=== PATIENT | female | born 1945 | race Caucasian/White ===

== ENCOUNTER 2017-07-04 05:59 | Emergency (ER) | payer MEDICARE, BC ==
--- NOTE | 2017-07-04 06:37 | ER Document Report ---
ED General - General Chief Complaint: Abdominal Pain Stated Complaint: ABDOMINAL PAIN,HIGH BLOOD PRESSURE PROBLEMS Time Seen by Provider: 07/04/17 06:28 Notes: The patient is a 71-year-old female, past medical history hypertension, GERD, chronic low back pain after a lumbar fusion 7 months ago, presents with epigastric pain radiating to her back and substernal chest region that started when she woke up to urinate earlier tonight. She has never had this before. Patient is also concerned that her blood pressure is elevated, although she did take her blood pressure medications yesterday morning. She is due for her Losartan 100 mg and HCTZ 25 mg this morning. She denies fevers, nausea, vomiting, shortness of breath, urinary symptoms, diarrhea, constipation, numbness, tingling, rash or ataxia. TRAVEL OUTSIDE OF THE [place] IN LAST 30 DAYS: No - Related Data Allergies/Adverse Reactions: tramadol Allergy (Verified 07/04/17 08:08) Past Medical History - General Information source: Patient - Social History Smoking Status: Unknown if Ever Smoked Family History: Reviewed & Not Pertinent - Past Medical History Cardiac Medical History: Reports: Hx Hypertension - Immunizations Hx Diphtheria, Pertussis, Tetanus Vaccination: Yes Review of Systems - Review of Systems Notes: REVIEW OF SYSTEMS: CONSTITUTIONAL: -fevers, -chills EENT: -eye pain, -difficulty swallowing, -nasal congestion CARDIOVASCULAR: +chest pain, -syncope. RESPIRATORY: -cough, -SOB GASTROINTESTINAL: +epigastric abdominal pain, -nausea, -vomiting, -diarrhea GENITOURINARY: -dysuria, -hematuria MUSCULOSKELETAL: +back pain, -neck pain SKIN: -rash or skin lesions. HEMATOLOGIC: -easy bruising or bleeding. LYMPHATIC: -swollen, enlarged glands. NEUROLOGICAL: -altered mental status or loss of consciousness, -headache, - neurologic symptoms PSYCHIATRIC: -anxiety, -depression. ALL OTHER SYSTEMS REVIEWED AND NEGATIVE. Physical Exam - Vital signs Vitals: Temp Pulse Resp BP Pulse Ox 97.6 F 72 18 171/96 H 98 07/04/17 06:05 07/04/17 06:05 07/04/17 06:05 07/04/17 06:05 07/04/17 06:05 - Notes Notes: PHYSICAL EXAMINATION: GENERAL: Well-appearing, well-nourished and in no acute distress. HEAD: Atraumatic, normocephalic. EYES: Pupils equal round and reactive to light, extraocular movements intact, sclera anicteric, conjunctiva are normal. ENT: nares patent, oropharynx clear without exudates. Moist mucous membranes. NECK: Normal range of motion, supple without lymphadenopathy LUNGS: Breath sounds clear to auscultation bilaterally and equal. No wheezes rales or rhonchi. HEART: Regular rate and rhythm without murmurs ABDOMEN: Soft, nontender, normoactive bowel sounds. No guarding, no rebound. No masses appreciated. EXTREMITIES: Normal range of motion, no pitting or edema. No cyanosis. NEUROLOGICAL: Cranial nerves grossly intact. Normal speech, normal gait. Normal sensory and motor exams. PSYCH: Normal mood, normal affect. SKIN: Warm, Dry, normal turgor, no rashes or lesions noted. Course - Re-evaluation Re-evalutation: Patient presents with sudden onset of epigastric pain radiating to her chest and back. CTA chest abdomen and pelvis was ordered due to concern about aortic dissection, but this did not show any evidence of aortic pathology or any other acute concerns. Patient's blood work and urine are unremarkable and EKG and troponin also do not show evidence of active ischemia. After GI cocktail, she feels much better. Instructed her to increase her Prilosec to twice a day and follow-up with her PMD for further evaluation and treatment. - Vital Signs Vital signs: Temp Pulse Resp BP Pulse Ox 97.6 F 72 7 L 178/93 H 97 07/04/17 06:05 07/04/17 06:05 07/04/17 07:11 07/04/17 06:27 07/04/17 07:11 - Laboratory Result Diagrams: 07/04/17 07:50 07/04/17 07:50 Laboratory results interpreted by me: 07/04/17 07/04/17 07:50 07:50 Hgb 11.9 L Hct 35.3 L Sodium 145.3 H Glucose 115 H - Diagnostic Test Radiology reviewed: Image reviewed, Reports reviewed Radiology results interpreted by me: CXR: NAD - EKG Interpretation by Me EKG shows normal: Sinus rhythm, [place], Intervals, QRS Complexes, ST-T Waves Rate: Normal When compared to previous EKG there are: Previous EKG unavailable Discharge - Discharge Clinical Impression: Abdominal pain Qualifiers: Abdominal location: epigastric Qualified Code(s): R10.13 - Epigastric pain Chest pain Qualifiers: Chest pain type: unspecified Qualified Code(s): R07.9 - Chest pain, unspecified Back pain Qualifiers: Back pain location: back pain in unspecified location Chronicity: acute Back pain laterality: unspecified Qualified Code(s): M54.9 - Dorsalgia, unspecified Condition: Stable Disposition: HOME, SELF-CARE Additional Instructions: Increase her Prilosec to twice a day and follow-up with your primary care physician. Her CAT scan does not show any evidence of aortic dissection or any other emergent concerns. CHEST PAIN OF UNCLEAR CAUSE: The exact cause of your chest pain isn't clear. Fortunately, there is no evidence of a dangerous medical condition. Further testing may be required to find the source of the pain. Most often, we find that this pain is coming from the chest wall -- the muscles or rib joints in the chest. But chest pain can come from the lung and lung lining, the esophagus, the heart valves or heart lining, and even the stomach or gallbladder. Rest. Eat lightly until the pain is gone. We may prescribe medicine for pain and inflammation. You should call the physician immediately if the pain radiates to the shoulder, jaw or arms; if you start to run a fever or develop a cough; or if you develop shortness of breath, or other new or alarming symptoms. NORMAL EXAM AND WORKUP: At this time, your examination and workup show no significant abnormality. No significant abnormal physical findings were noted. All laboratory, EKG, and imaging (x-ray, CT scans, ultrasound) studies that were ordered show no significant abnormality. Although your examination and all studies that were ordered showed no significant abnormal finding, there are no examinations and no studies that are 100% accurate. There is always the possibility that some abnormality could exist and not be detected with physical examination or within the limits and capabilities of laboratory and other studies. You should return or follow up as you were instructed on your visit today for further evaluation if your symptoms do not resolve. ACID REFLUX DISEASE (GERD): Gastro-Esophageal Reflux Disease (GERD) is caused by stomach acid refluxing back up into the esophagus. The valve at the end of the esophagus may be weak. This is common in persons with a hiatal hernia. GERD symptoms can include indigestion, chest pain, heartburn, or food "sticking." Certain foods, alcohol, and aspirin can make GERD worse. Treatment depends on the severity. Usually, antacids or acid-suppressing medicines are used. When the esophagus is acutely inflamed, the physician will often prescribe membrane-protective drugs such as Carafate. Some patients benefit from medication such as Reglan that tightens the valve at the top of the stomach. Avoid those foods that bring on your symptoms. For many people, these foods are coffee, chocolate, onions, garlic, and carbonated drinks. Don't use alcohol, aspirin, caffeine, or tobacco. Don't eat late at night -- within 4 hours of bedtime. Don't over-eat. If necessary, elevate the head of your bed about 4 inches so that stomach acid will not roll up into your esophagus. Call the doctor if you develop severe chest pain, inability to swallow fluids, fever, or worsening symptoms. PRILOSEC (ACID PUMP INHIBITOR): Prilosec (omeprazole) is an acid-pump inhibitor. It blocks the secretion of hydrogen ions in the acid-producing cells of the stomach. Prilosec keeps your stomach from making acid. Take all medication as prescribed, even after the pain is gone. Regular antacids may be added as needed if you have symptoms while taking this medicine. There are usually no side effects from this medication. Contact your doctor if there is fever, rash, yellow skin color, increasing abdominal pain, weakness, or unusual bruising. Return at once if you develop lightheadedness, black or bloody stool, or bloody vomitus. FOLLOW-UP CARE: If you have been referred to a physician for follow-up care, call the physician s office for an appointment as you were instructed or within the next two days. If you experience worsening or a significant change in your symptoms, notify the physician immediately or return to the Emergency Department at any time for re-evaluation. ABDOMINAL PAIN: There are many causes of abdominal pain. Pain can mean a serious problem requiring surgery (such as appendicitis). It can also be an innocent problem that goes away on its own (such as a viral infection). Often, time must pass to determine the cause of pain. The physician does not feel that hospitalization is necessary, at present. Things may change within the next 24 hours. Call the doctor or come back for re- examination if any problems occur, such as: (1) Pain that becomes more severe, steady, or becomes concentrated in one specific area. Also, pain that is more severe with movement or coughing. (2) Vomiting that persists or becomes more frequent. (3) Blood in the vomitus, urine, or bowel movements. Blood in the stool may have a tarry or black appearance. (4) Shaking chills or fever greater than 100 degrees F. (5) The abdomen becomes more distended or swollen. (6) Bowel movements cease. (7) Failure to improve as expected. NORMAL EXAM AND WORKUP: At this time, your examination and workup show no significant abnormality. No significant abnormal physical findings are noted. All laboratory, EKG, and imaging (x-ray, CT scans, ultrasound) studies that were ordered show no significant abnormality. Although your examination and all studies that were ordered showed no significant abnormal finding, there are no examinations and no studies that are 100% accurate. There is always the possibility that some abnormality could exist and not be detected with physical examination or within the limits and capabilities of laboratory and other studies. You should return or follow up as you were instructed on your visit today for further evaluation if your symptoms do not resolve. FOLLOW-UP CARE: If you have been referred to a physician for follow-up care, call the physician s office for an appointment as you were instructed or within the next two days. If you experience worsening or a significant change in your symptoms, notify the physician immediately or return to the Emergency Department at any time for re-evaluation. Forms: Elevated Blood Pressure Referrals: JAMES BALDWIN MD [Primary Care Provider] - Follow up as needed GLENN SETHI MD [ACTIVE STAFF] - Follow up as needed
--- NOTE | 2017-07-04 07:33 | RADIOLOGY REPORT (SQ) ---
EXAM DESCRIPTION: CHEST PA/LAT COMPLETED DATE/TIME: 07/04/2017 7:13 am REASON FOR STUDY: chest pain COMPARISON: 08/02/2016. EXAM PARAMETERS: NUMBER OF VIEWS: two views TECHNIQUE: Digital Frontal and Lateral radiographic views of the chest acquired. RADIATION DOSE: NA LIMITATIONS: none FINDINGS: LUNGS AND PLEURA: Prominent interstitium. MEDIASTINUM AND HILAR STRUCTURES: No masses or contour abnormalities. HEART AND VASCULAR STRUCTURES: Heart normal size. No evidence for failure. Atherosclerosis. BONES: No acute findings. HARDWARE: Cervicothoracic hardware fusion. Lumbar spine hardware partially imaged. OTHER: No other significant finding. IMPRESSION: No acute cardiopulmonary findings. TECHNICAL DOCUMENTATION: JOB ID: [id number] [employer]- All Rights Reserved
[2017-07-04] MEDS ORDERED: HYDROCHLOROTHIAZIDE 25 MG TABLET PO ONE (07:38)
[2017-07-04] MEDS ORDERED: LOSARTAN POTASSIUM 50 MG TABLET PO ONE (07:38)
[2017-07-04 07:59] LABS: ABSOLUTE BASOPHILS # (AUTO) 0.1 10^3/uL (0.0-0.2); ABSOLUTE EOSINOPHILS # (AUTO) 0.1 10^3/uL (0.0-0.6); ABSOLUTE LYMPHOCYTES (AUTO) 1.2 10^3/uL (0.5-4.7); ABSOLUTE MONOCYTES (AUTO) 0.7 10^3/uL (0.1-1.4); ABSOLUTE NEUT (AUTO) 5.5 10^3/uL (1.7-8.2); BASOPHILS % (AUTO) 0.8 % (0-2); EOSINOPHILS % (AUTO) 0.7 % (0-6); HEMATOCRIT 35.3 % (36.0-47.0); HEMOGLOBIN 11.9 g/dL (12.0-15.5); HGB HCT DIFFERENCE 0.4; LYMPHOCYTES % (AUTO) 16.4 % (13-45); MEAN CORPUSCULAR HEMOGLOBIN 31.7 pg (27.0-33.4); MEAN CORPUSCULAR HGB CONC 33.9 g/dL (32.0-36.0); MEAN CORPUSCULAR VOLUME 94 fl (80-97); MONOCYTES % (AUTO) 9.8 % (3-13); RED BLOOD COUNT 3.77 10^6/uL (3.72-5.28); SEGMENTED NEUTROPHILS % (AUTO) 72.3 % (42-78); WHITE BLOOD COUNT 7.6 10^3/uL (4.0-10.5)
[2017-07-04 08:04] LABS: APPEARANCE,URINE CLEAR; BILIRUBIN,URINE NEGATIVE (NEGATIVE); GLUCOSE, URINE NEGATIVE (NEGATIVE); KETONES,URINE NEGATIVE (NEGATIVE); LEUKOCYTE ESTERASE,URINE NEGATIVE (NEGATIVE); NITRITE,URINE NEGATIVE (NEGATIVE); PROTEIN,URINE NEGATIVE (NEGATIVE); URINE SPECIFIC GRAVITY 1.013; UROBILINOGEN,URINE NEGATIVE mg/dL (<2.0)
[2017-07-04 08:22] LABS: ALANINE AMINOTRANSFERASE 38 U/L (9-52); ALBUMIN 4.2 g/dL (3.5-5.0); ALKALINE PHOSPHATASE 62 U/L (38-126); ANION GAP 11 (5-19); ASPARTATE AMINO TRANSFERASE 25 U/L (14-36); BILIRUBIN,DIRECT 0.3 mg/dL (0.0-0.4); BILIRUBIN,TOTAL 0.5 mg/dL (0.2-1.3); BLOOD UREA NITROGEN 13 mg/dL (7-20); CALCIUM 9.4 mg/dL (8.4-10.2); CARBON DIOXIDE 28 mmol/L (22-30); CHLORIDE 106 mmol/L (98-107); CREATININE RESULT 0.82 mg/dL (0.52-1.25); GLUCOSE 115 mg/dL (75-110); LIPASE 118.5 U/L (23-300); POTASSIUM 4.1 mmol/L (3.6-5.0); SODIUM 145.3 mmol/L (137-145); TOTAL PROTEIN 6.6 g/dL (6.3-8.2)
--- NOTE | 2017-07-04 08:47 | RADIOLOGY REPORT (SQ) ---
EXAM DESCRIPTION: CTA CHEST COMPLETED DATE/TIME: 07/04/2017 8:30 am REASON FOR STUDY: chest/abdomen/back tearing COMPARISON: CT chest 05/28/2009, 12/31/2009, 02/21/2010, 09/01/2010 TECHNIQUE: CT scan of the chest performed using helical scanning technique with dynamic intravenous contrast injection. Images reviewed with lung, soft tissue and bone windows. Reconstructed coronal and sagittal MPR images reviewed. Additional 3 dimensional post-processing performed to develop Maximal Intensity Projection images (IN P). All images stored on PACS. All CT scanners at this facility use dose modulation, iterative reconstruction, and/or weight based d osing when appropriate to reduce radiation dose to as low as reasonably achievable (ALARA). [facility]: Dose Right [facility]: CareDose [facility]: Dose Right [facility]: Teradose 4D [facility]: [employer] CONTRAST TYPE AND DOSE: contrast/concentration: Isovue 370.00 mg/ml; Total Contrast Delivered: 99.0 ml; Total Saline Delivered: 90.0 ml Contrast bolus adequate for pulmonary arteries and aorta. RENAL FUNCTION: Deferred by ER doctor RADIATION DOSE: 14.5 mGy . LIMITATIONS: None. FINDINGS: LUNGS AND PLEURA: No masses, infiltrates, pneumothorax. No pleural effusions, calcificati ons. AORTA AND GREAT VESSELS: No aneurysm. No thoracic aortic dissection HEART: No pericardial effusion. No significant coronary artery calcifications. PULMONARY ARTERIES: No emboli visualized in the main pulmonary arteries or the segmental branches. HILAR AND MEDIASTINAL STRUCTURES: No identified masses or abnormal nodes. HARDWARE: None in the chest. UPPER ABDOMEN: No significant findings. Limited exam. THYROID AND OTHER SOFT TISSUES: No masses. No adenopathy. BONES: No acute or significant finding. 3D MIPS: Confirm above findings. OTHER: No other significant finding. IMPRESSION: NORMAL CTA OF THE CHEST. NO PULMONARY EMBOLI. COMMENT: Quality ID # [id number]: Final reports with documentation of one or more dose reduction techniques (e.g., Automated exposure control, adjustment of the mA and/or kV according to patient size, use of iterative reconstruction technique) TECHNICAL DOCUMENTATION: JOB ID: [id number]- All Rights Reserved
--- NOTE | 2017-07-04 08:53 | RADIOLOGY REPORT (SQ) ---
EXAM DESCRIPTION: CTA ABDOMEN/PELVIS W WO COMPLETED DATE/TIME: 07/04/2017 8:30 am REASON FOR STUDY: chest/abdomen/back tearing COMPARISON: Multiple previous CT chest exams TECHNIQUE: CT scan of the abdomen and pelvis performed with intravenous contrast using helical scann ing technique with dynamic intravenous contrast injection. No oral contrast Images reviewed with lung, soft tissue, and bone windows. Reconstructed coronal and sagittal MPR imag es reviewed. Delayed images for evaluation of the urinary system also acquired. All images stored on PACS. All CT scanners at this facility use dose modulation, iterative reconstruction, and/or weight based d osing when appropriate to reduce radiation dose to as low as reasonably achievable (ALARA). [facility]: Dose Right [facility]: CareDose [facility]: Dose Right [facility]: Teradose 4D [facility]: [employer] CONTRAST TYPE AND DOSE: 99 mL Isovue 370- low osmolar. RENAL FUNCTION: Deferred by ER doctor RADIATION DOSE: CT Rad equipment meets quality standard of care and radiation dose reduction techniq ues were employed. CTDIvol: 12.0 - 17.9 mGy. DLP: 1718 mGy-cm.. LIMITATIONS: None. FINDINGS: LOWER CHEST: No significant findings. No nodules or infiltrates. LIVER: Normal size. No masses. No dilated ducts. SPLEEN: Normal size. No focal lesions. PANCREAS: No masses. No significant calcifications. No adjacent inflammation or peripancreatic fluid collections. Pancreatic duct not dilated. GALLBLADDER: No identified stones by CT criteria. No inflammatory changes to suggest cholecystitis. ADRENAL GLANDS: No significant masses or asymmetry. RIGHT KIDNEY AND URETER: No solid masses. 2.5 cm right midpole renal cortical cyst. No significant calcification. No hydronephrosis or hydroureter. LEFT KIDNEY AND URETER: No solid masses. No significant calcification. No hydronephrosis or hydrouret er. AORTA AND VESSELS: No aneurysm. No dissection. Renal arteries, SMA, celiac without stenosis. RETROPERITONEUM: No retroperitoneal adenopathy, hemorrhage or masses. BOWEL AND PERITONEAL CAVITY: No obstruction. No visualized masses. No free fluid. No inflammatory ch anges or thickening of bowel wall. Scattered sigmoid and descending colonic diverticuli without CT s igns of acute diverticulitis. APPENDIX: Not identified PELVIS: No significant masses. Normal bladder. No free fluid. Post hysterectomy ABDOMINAL WALL: No masses. No hernias. BONES: No significant or acute findings. Lumbar fusion with hardware OTHER: No other significant finding. IMPRESSION: NO SIGNIFICANT OR ACUTE FINDINGS IN THE ABDOMEN OR PELVIS. TECHNICAL DOCUMENTATION: JOB ID: [id number] Quality ID # [id number]: Final reports with documentation of one or more dose reduction techniques (e.g., Au tomated exposure control, adjustment of the mA and/or kV according to patient size, use of iterative reconstruction technique) 2010 [employer]- All Rights Reserved
[2017-07-04] MEDS ORDERED: METOCLOPRAMIDE HCL ORAL SOLN 10 MG/10 ML UDCUP PO ONE (09:03)
[2017-07-04] MEDS ORDERED: MAG HYDROX/AL HYDROX/SIMETH SUSP 30 ML UDCUP PO ONE (09:03)
[2017-07-04] MEDS ORDERED: LIDOCAINE 2% VISCOUS SOLN 20 ML UDCUP PO ONE (09:03)
[2017-07-04 09:43] VITALS: BP 144/68
--- NOTE | 2017-07-05 06:07 | EKG REPORT ---
SEVERITY:- NORMAL ECG - SINUS RHYTHM : Confirmed by: Kassidy Mello MD 05-Jul-2017 06:06:59
== END 2017-07-04 09:44 | disposition home or self-care (01) ==
LOC: ER 05:59
DX: R10.13 Epigastric pain (principal); R07.9 Chest pain, unspecified; M54.9 Dorsalgia, unspecified; I10 Essential (primary) hypertension
CPT/HCPCS: 93005; 99285; 36415; 83690; 85025; 80053; 81001; 84484; 71020; 71275; 74174; 93010; A9270 ×2; J3490

== ENCOUNTER 2018-11-06 09:31 | Emergency (ER) | payer MEDICARE, BC ==
--- NOTE | 2018-11-06 09:55 | ER Document Report ---
ED Medical Screen (RME) - General Chief Complaint: Abdominal Pain Stated Complaint: ABDOMINAL PAIN Time Seen by Provider: 11/06/18 09:53 Mode of Arrival: Ambulatory Information source: Patient TRAVEL OUTSIDE OF THE [place] IN LAST 30 DAYS: No - HPI Patient complains to provider of: abd pain Onset: Other - pt with several week h/o intermittent abd pain (has been on mobic) which has gogtten worse in the pas few days - Related Data Allergies/Adverse Reactions: meloxicam Allergy (Verified 11/06/18 09:35) metaxalone Allergy (Verified 11/06/18 09:35) pregabalin [From Lyrica] Allergy (Verified 11/06/18 09:35) tramadol Allergy (Verified 07/04/17 08:08) Past Medical History - Past Medical History Cardiac Medical History: Reports: Hx Hypercholesterolemia, Hx Hypertension Renal/ Medical History: Denies: Hx Peritoneal Dialysis GI Medical History: Reports: Hx Gastroesophageal Reflux Disease Past Surgical History: Reports: Hx Abdominal Surgery - hernia, Hx Hysterectomy, Hx Orthopedic Surgery - back, left shoulder - Immunizations Hx Diphtheria, Pertussis, Tetanus Vaccination: Yes Physical Exam - Vital signs Vitals: Temp Pulse Resp BP Pulse Ox 98.2 F 87 16 119/67 97 11/06/18 09:45 11/06/18 09:45 11/06/18 09:45 11/06/18 09:45 11/06/18 09:45 Course - Vital Signs Vital signs: Temp Pulse Resp BP Pulse Ox 98.2 F 87 16 119/67 97 11/06/18 09:45 11/06/18 09:45 11/06/18 09:45 11/06/18 09:45 11/06/18 09:45
[2018-11-06 10:17] LABS: ABSOLUTE EOSINOPHILS # (AUTO) 0.1 10^3/uL (0.0-0.6); ABSOLUTE LYMPHOCYTES (AUTO) 0.9 10^3/uL (0.5-4.7); ABSOLUTE MONOCYTES (AUTO) 0.7 10^3/uL (0.1-1.4); ABSOLUTE NEUT (AUTO) 7.9 10^3/uL (1.7-8.2); BASOPHILS % (AUTO) 0.4 % (0-2); EOSINOPHILS % (AUTO) 0.7 % (0-6); HEMATOCRIT 36.9 % (36.0-47.0); HEMOGLOBIN 12.6 g/dL (12.0-15.5); LYMPHOCYTES % (AUTO) 9.4 % (13-45); MEAN CORPUSCULAR HEMOGLOBIN 30.9 pg (27.0-33.4); MEAN CORPUSCULAR HGB CONC 34.2 g/dL (32.0-36.0); MEAN CORPUSCULAR VOLUME 90 fl (80-97); MONOCYTES % (AUTO) 7.3 % (3-13); PLATELET COUNT 278 10^3/uL (150-450); RED BLOOD COUNT 4.09 10^6/uL (3.72-5.28); RED CELL DISTRIBUTION WIDTH 13.5 % (11.5-14.0); SEGMENTED NEUTROPHILS % (AUTO) 82.2 % (42-78); TOTAL CELLS COUNTED % (AUTO) 100 %; WHITE BLOOD COUNT 9.6 10^3/uL (4.0-10.5)
[2018-11-06 10:36] LABS: ALANINE AMINOTRANSFERASE 16 U/L (9-52); ALBUMIN 4.3 g/dL (3.5-5.0); ALKALINE PHOSPHATASE 64 U/L (38-126); ANION GAP 10 (5-19); ASPARTATE AMINO TRANSFERASE 37 U/L (14-36); BILIRUBIN,DIRECT 0.3 mg/dL (0.0-0.4); BILIRUBIN,TOTAL 0.6 mg/dL (0.2-1.3); BLOOD UREA NITROGEN 14 mg/dL (7-20); CALCIUM 9.7 mg/dL (8.4-10.2); CARBON DIOXIDE 28 mmol/L (22-30); CHLORIDE 99 mmol/L (98-107); GLUCOSE 230 mg/dL (75-110); POTASSIUM 3.5 mmol/L (3.6-5.0); SODIUM 136.6 mmol/L (137-145); TOTAL PROTEIN 7.7 g/dL (6.3-8.2)
[2018-11-06 10:37] LABS: LIPASE 66.5 U/L (23-300)
[2018-11-06 11:25] LABS: APPEARANCE,URINE CLEAR; BILIRUBIN,URINE NEGATIVE (NEGATIVE); COLOR,URINE YELLOW; GLUCOSE, URINE NEGATIVE (NEGATIVE); KETONES,URINE NEGATIVE (NEGATIVE); LEUKOCYTE ESTERASE,URINE NEGATIVE (NEGATIVE); NITRITE,URINE NEGATIVE (NEGATIVE); PROTEIN,URINE NEGATIVE (NEGATIVE); URINE SPECIFIC GRAVITY 1.008; UROBILINOGEN,URINE NEGATIVE mg/dL (<2.0)
--- NOTE | 2018-11-06 15:54 | RADIOLOGY REPORT (SQ) ---
EXAM DESCRIPTION: CT ABD/PELVIS WITH IV ORAL COMPLETED DATE/TIME: 11/06/2018 2:51 pm REASON FOR STUDY: Lower abdominal pain COMPARISON: CT abdomen pelvis 07/04/2017 TECHNIQUE: CT scan of the abdomen and pelvis performed using helical scanning technique with dynamic intravenous contrast injection. No oral contrast. Images reviewed with lung, soft tissue, and bone windows. Reconstructed coronal and sagittal MPR images reviewed. Delayed images for evaluation of the urinary system also acquired. All images stored on PACS. All CT scanners at this facility use dose modulation, iterative reconstruction, and/or weight based d osing when appropriate to reduce radiation dose to as low as reasonably achievable (ALARA). [facility]: Dose Right [facility]: CareDose [facility]: Dose Right [facility]: Teradose 4D [facility]: [employer] CONTRAST TYPE AND DOSE: contrast/concentration: Isovue 350.00 mg/ml; Total Contrast Delivered: 94.0 ml; Total Saline Delivered: 71.0 ml RENAL FUNCTION: Creatinine 0.85 RADIATION DOSE: CT Rad equipment meets quality standard of care and radiation dose reduction techniq ues were employed. CTDIvol: 12.2 - 16.2 mGy. DLP: 1586 mGy-cm.. LIMITATIONS: None. FINDINGS: Along the distal sigmoid colon, a 10 cm long segment of colon wall thickening and luminal narrowing is present. There is bandlike inflammatory change along the leftward lateral aspect of the colon without well-circumscribed abscess or free air. Findings likely represent diverticulitis, bes t shown on axial series 3, images 75-82. There is a very small amount of air in the vagina. Patient is post hysterectomy. Correlate clinical ly for colovaginal fistula. Patient drank oral contrast. Remainder of the gastrointestinal tract is otherwise unremarkable. No CT evidence of bowel obstruction. No free intraperitoneal air or free fluid. LOWER CHEST: No significant findings. No nodules or infiltrates. LIVER: Normal size. No masses. No dilated ducts. Subcentimeter cyst right lobe liver subdiaphragmat ic surface SPLEEN: Normal size. No focal lesions. PANCREAS: No masses. No significant calcifications. No adjacent inflammation or peripancreatic fluid collections. Pancreatic duct not dilated. GALLBLADDER: No identified stones by CT criteria. No inflammatory changes to suggest cholecystitis. ADRENAL GLANDS: No significant masses or asymmetry. RIGHT KIDNEY AND URETER: No solid masses. 3 cm right upper pole renal cortical cyst No significant c alcifications. No hydronephrosis or hydroureter. LEFT KIDNEY AND URETER: No solid masses. No significant calcifications. No hydronephrosis or hydr oureter. AORTA AND VESSELS: No aneurysm. No dissection. Renal arteries, SMA, celiac without stenosis. RETROPERITONEUM: No retroperitoneal adenopathy, hemorrhage or masses. BOWEL AND PERITONEAL CAVITY: As above APPENDIX: Surgically absent PELVIS: As above. Post hysterectomy. Sigmoid colon diverticulitis. Adjacent air in the vagina with out a definite discrete fistula seen by today's study. Correlate clinically for colovaginal fistula. Urinary bladder unremarkable. No pelvic adenopathy ABDOMINAL WALL: No masses. No hernias. BONES: Lumbar fusion with hardware from L3-4 through L4-5. OTHER: No other significant finding. IMPRESSION: Sigmoid colon diverticulitis with adjacent inflammation in the left pelvic sidewall fat. No discrete abscess. Adjacent air in the vagina without a discrete fistula seen by today's study. Correlate clinically for colovaginal fistula TECHNICAL DOCUMENTATION: JOB ID: [id number] Quality ID # [id number]: Final reports with documentation of one or more dose reduction techniques (e.g., Au tomated exposure control, adjustment of the mA and/or kV according to patient size, use of iterative reconstruction technique) 2010 [employer]- All Rights Reserved Reading location - IP/workstation name: [email or web address]
[2018-11-06] MEDS ORDERED: LEVOFLOXACIN 750 MG/D5W RTU 750 MG/150 ML RTUPB IV ONE (16:01)
[2018-11-06] MEDS ORDERED: METRONIDAZOLE 500 MG/NS RTU 500 MG/100 ML RTUPB IV ONE (16:02)
--- NOTE | 2018-11-06 18:34 | ER Document Report ---
Entered by FATOU PITTS SCRIBE 11/06/18 1049 Acting as scribe for:ZULAY GARRIDO MD ED General - General Chief Complaint: Abdominal Pain Stated Complaint: ABDOMINAL PAIN Time Seen by Provider: 11/06/18 09:53 Primary Care Provider: [facility] [Provider Group] - Follow up in 1 week JAMES SAUNDERS MD [Primary Care Provider] - Follow up in 3-5 days Mode of Arrival: Ambulatory Notes: Patient is a 73 year old female presenting to the emergency department complaining of abdominal pain onset several weeks ago. She also complains of nausea, vomiting, chills and fatigue. She reports her last vomiting episode was 1 week ago. She states her abdominal and nausea has worsened over the last few days. She further complains of an inability to move bowels further stating she usually has a bowel movement 2x daily, however she has only had 1 small bowel mo vement these last 2 days. She denies any recent injuries or fevers. She states she started meloxicam on 09/23/18 and was instructed to discontinue use on 10/29/18. Patient states she is on pain management for chronic back and neck pain. Patient's PCP is Dr. Saunders. TRAVEL OUTSIDE OF THE [place] IN LAST 30 DAYS: No - Related Data Allergies/Adverse Reactions: meloxicam Allergy (Verified 11/06/18 09:35) metaxalone Allergy (Verified 11/06/18 09:35) pregabalin [From Lyrica] Allergy (Verified 11/06/18 09:35) tramadol Allergy (Verified 07/04/17 08:08) Past Medical History - General Information source: Patient - Social History Smoking Status: Former Smoker Cigarette use (# per day): No Chew tobacco use (# tins/day): No Smoking Education Provided: No Frequency of alcohol use: None Family History: Reviewed & Not Pertinent Patient has suicidal ideation: No Patient has homicidal ideation: No - Past Medical History Cardiac Medical History: Reports: Hx Hypercholesterolemia, Hx Hypertension GI Medical History: Reports: Hx Gastroesophageal Reflux Disease Past Surgical History: Reports: Hx Abdominal Surgery - hernia, Hx Hysterectomy, Hx Orthopedic Surgery - back, left shoulder, Other - L3-4 fusion, L4-5 fusion '17. Discectomy '15 - Immunizations Hx Diphtheria, Pertussis, Tetanus Vaccination: Yes Review of Systems - Review of Systems Constitutional: See HPI, Chills EENT: No symptoms reported Cardiovascular: No symptoms reported Respiratory: No symptoms reported Gastrointestinal: See HPI Genitourinary: No symptoms reported Female Genitourinary: No symptoms reported Musculoskeletal: No symptoms reported Skin: No symptoms reported Hematologic/Lymphatic: No symptoms reported Neurological/Psychological: No symptoms reported -: Yes All other systems reviewed and negative Physical Exam - Vital signs Vitals: Temp Pulse Resp BP Pulse Ox 98.2 F 87 16 119/67 97 11/06/18 09:45 11/06/18 09:45 11/06/18 09:45 11/06/18 09:45 11/06/18 09:45 - Notes Notes: GENERAL: Alert, interacts well. No acute distress. HEAD: Normocephalic, atraumatic. EYES: Pupils equal, round, and reactive to light. Extraocular movements intact. ENT: Oral mucosa moist, tongue midline. NECK: Full range of motion. Supple. Trachea midline. LUNGS: Clear to auscultation bilaterally, no wheezes, rales, or rhonchi. No respiratory distress. HEART: Regular rate and rhythm. No murmurs, gallops, or rubs. ABDOMEN: Soft, bilateral lower abdominal and pelvic tenderness to palpation. Non-distended. Bowel sounds present in all 4 quadrants. No guarding, rigidity, or rebound. EXTREMITIES: Moves all 4 extremities spontaneously. NEUROLOGICAL: Alert and oriented x3. Normal speech. PSYCH: Normal affect, normal mood. SKIN: Warm, dry, normal turgor. No rashes or lesions noted. Course - Vital Signs Vital signs: Temp Pulse Resp BP Pulse Ox 97.8 F 76 16 132/74 H 98 11/06/18 12:38 11/06/18 14:30 11/06/18 14:30 11/06/18 14:30 11/06/18 14:30 - Laboratory Result Diagrams: 11/06/18 09:55 11/06/18 09:55 Laboratory results interpreted by me: 11/06/18 11/06/18 09:55 09:55 Seg Neutrophils % 82.2 H Lymphocytes % 9.4 L Sodium 136.6 L Potassium 3.5 L Glucose 230 H AST 37 H - Diagnostic Test Radiology reviewed: Image reviewed, Reports reviewed - Sigmoid colon diverticulitis with adjacent inflammation in the left pelvic sidewall fat. No discrete abscess. Adjacent air in the vagina without discrete fistula seen by today's study. - Consults Dr. Cross Time consulted: 16:53 Consulted provider: follow-up in office - Follow-up in the office next , Wednesday or the following Wednesday. Discharge - Discharge Clinical Impression: Sigmoid diverticulitis Condition: Stable Disposition: HOME, SELF-CARE Additional Instructions: Diverticulitis: You have been diagnosed as having diverticulitis. This is an inflammation of a small pouch attached to the colon, called a diverticulum. Many of these small pouches can form on the colon as you get older. They are often caused by constipation. When inflamed or infected, symptoms arise -- usually abdominal pain, constipation or diarrhea, fever, and blood in the stool. Severe diverticulitis may require hospitalization. More mild cases are usually treated with antibiotics and clear liquid diet. As you improve, a diet low in residue (one which forms little stool) is prescribed. When you are better, you should eat a high-fiber diet. Stool softeners (like Metamucil) are usually recommended. Call the doctor or go to the hospital if there is increasing pain, vomiting, high fever, large amounts of blood passed, or if bowel movements cease. Take the antibiotic medication as prescribed. Take Tylenol for pain if needed. Drink plenty of fluids. Follow-up with [facility] sometime in the next 5-7 days. RETURN TO THE EMERGENCY ROOM IF ANY NEW OR WORSENING SYMPTOMS. Prescriptions: Ciprofloxacin HCl [Cipro 750 mg Tablet] 750 mg PO BID #20 tablet Metronidazole [Flagyl 500 mg Tablet] 500 mg PO QID #40 tablet Referrals: [facility] [Provider Group] - Follow up in 1 week JAMES SAUNDERS MD [Primary Care Provider] - Follow up in 3-5 days Scribe Attestation: 11/06/18 13:07 I personally performed the services described in the documentation, reviewed and edited the documentation which was dictated to the scribe in my presence, and it accurately records my words and actions. I personally performed the services described in the documentation, reviewed and edited the documentation which was dictated to the scribe in my presence, and it accurately records my words and actions.
[2018-11-06 19:06] VITALS: BP 131/85
== END 2018-11-06 19:09 | disposition home or self-care (01) ==
LOC: ER 09:31
DX: K57.32 Diverticulitis of large intestine without perforation or abscess without bleeding (principal); R68.83 Chills (without fever); R53.83 Other fatigue; R11.0 Nausea; R19.4 Change in bowel habit; I10 Essential (primary) hypertension; M54.2 Cervicalgia; M54.9 Dorsalgia, unspecified; G89.29 Other chronic pain; Z79.899 Other long term (current) drug therapy; Z88.5 Allergy status to narcotic agent; Z88.8 Allergy status to other drugs, medicaments and biological substances; Z88.6 Allergy status to analgesic agent; Z87.891 Personal history of nicotine dependence
CPT/HCPCS: 99284; 96365; 96367; 36415; 83690; 85025; 80053; 81001; 74177; J1956

== ENCOUNTER 2018-11-24 06:44 | Day surgery (SDC) | payer MEDICARE, BC ==
[2018-11-24] MEDS ORDERED: ONDANSETRON HCL INJ/PF 4 MG/2 ML SDV ONE (07:13)
[2018-11-24] MEDS ORDERED: DIPHENHYDRAMINE HCL 50 MG/ML VIAL ONE (07:13)
[2018-11-24] MEDS ORDERED: FLUMAZENIL INJ 0.5 MG/5 ML VIAL ONE (07:14)
[2018-11-24] MEDS ORDERED: EPINEPHRINE INJ 1 MG/10 ML DISP.SYRIN ONE (07:14)
[2018-11-24] MEDS ORDERED: GLUCAGON,HUMAN RECOMB 1 MG INJ ONE (07:14)
[2018-11-24] MEDS ORDERED: NALOXONE HCL INJ/PF 0.4 MG/1 ML SDV ONE (07:14)
[2018-11-24] MEDS: MIDAZOLAM 2 MG/2 ML INJ ONE ×2 (07:48→07:52)
[2018-11-24] MEDS: FENTANYL CITRATE INJ/PF 100 MCG/2 ML AMPUL ONE ×2 (07:50→08:08)
--- NOTE | 2018-11-24 08:37 | Operative Report ---
Operative Report DATE OF SURGERY: 11/24/18 PREOPERATIVE DIAGNOSIS: Sigmoid diverticulitis with narrowing sigmoid colon; ru le out colovesicular fistula POSTOPERATIVE DIAGNOSIS: Same; rectal polyp OPERATION: Incomplete colonoscopy to 30 cm; rectal polypectomy with cold forceps device SURGEON: JAUN DENNIS ANESTHESIA: LMAC TISSUE REMOVED OR ALTERED: Rectal polyp COMPLICATIONS: None ESTIMATED BLOOD LOSS: Scant INTRAOPERATIVE FINDINGS: See below PROCEDURE: Obtaining informed consent the patient was taken from the preoperative holding area to the main endoscopy suite where monitoring devices were attached to the patient. Plan and surgical timeout were conducted The patient was placed in the left lateral decubitus position with knees to chest. A perianal examination was performed. There was no visible or palpable anorectal pathology. Sphincter tone was felt to be normal. The flexible pediatric, approximately 30 cm from the anal verge. Unfortunately we were unable to advance the scope the office point due to patient discomfort despite 6 mg of Versed and 100 mcg of fentanyl. We did change position of the patient supine, as well as enhanced regulation of the anterior abdominal wall, but were unable to advance the scope. There was no identified pathology at this point. Ability to advance the scope may have been due to structure, narrowing or extraluminal depression of the colon due to adhesions. Therefore the procedure was aborted. The scope was withdrawn through the rectosigmoid area. At approximately 12 cm in the anal verge was a 2-3 mm sessile polyp, photographed, removed with a cold forceps device. Specimen was submitted as rectal polyp. The clinical impression was a hyperplastic polyp. Bleeding was minimal The scope was withdrawn to the patient's anus. She tolerated the procedure well. Plan: 1. We will make arrangements to take the patient down to the operating room to perform a second attempt at complete colonoscopy under LMAC anesthesia pending 2. This was explained to the patient and her .
[2018-11-24] MEDS ORDERED: PROPOFOL INJ 200 MG/20 ML VIAL IV ONE (10:05)
--- NOTE | 2018-11-24 11:18 | Operative Report ---
Nonrecallable Operative Report DATE OF SURGERY: 11/24/18 PREOPERATIVE DIAGNOSIS: Sigmoid diverticulosis disease, history of diverticulitis;. Rectal polyp POSTOPERATIVE DIAGNOSIS: Additional rectal polyps; no evidence of sigmoid stricture or colovaginal fistula OPERATION: 1. Total colonoscopy to cecum. 2. Upper rectal polypectomy x2. SURGEON: JAUN CALABRESE ANESTHESIA: LMAC TISSUE REMOVED OR ALTERED: Rectal polyps x2 COMPLICATIONS: None ESTIMATED BLOOD LOSS: Scant INTRAOPERATIVE FINDINGS: See below PROCEDURE: Obtaining informed consent the patient was taken from the preoperative holding area to the main endoscopy suite where monitoring devices were attached to the patient. Plan and surgical timeout were conducted The patient had previously undergone incomplete colonoscopy by Dr. Calabrese 2 hours prior to the endoscopy suite. The procedure could not be performed because of inability to advance the scope to the rectosigmoid colon. She is now brought to the operating room for the delivery of LMAC anesthesia Appropriate level of anesthesia was induced. The flexible pediatric colonoscope was now advanced to the anal rectal canal, through the rectosigmoid area. There was tortuosity of this area but no marti stricture. With extracorporeal manipulation, we were able to advance the colonoscope up through this region, through the descending colon transverse colon descending colon into the cecum. This was an excellent study in a well-prepped bowel. She tolerated it well. Transillumination of the anterior abdominal wall, and visualization of the appendiceal orifice confirmed no intubation. The scope was withdrawn to light the colon checked the mucosa carefully. There was no evidence of tumor stricture bleeding. Sigmoid colon there were scattered diverticulosis disease and generalized narrowing and tortuous stenosis of the colon, but no marti stricture. Nor could we appreciate an opening consistent with a colo vaginal fistula. In the upper rectum approximately 19 cm from the anal verge were 2 small sessile polyps which were removed with a cold forceps device uneventfully. Specimens were retrieved and labeled as rectal polyps. Bleeding was minimal Patient tolerated procedure well and was recovered in the recovery room and then transferred back to the fifth floor endoscopy suite. Plan: 1. We will see patient back in [facility] for follow-up appointment 2. We will set patient up for a Gastrografin enema on an outpatient basis.
[2018-11-24 14:05] VITALS: BP 127/76
--- NOTE | 2018-11-30 09:22 | Discharge Summary ---
Discharge Summary (SDC) - Discharge Final Diagnosis: Sigmoid diverticulosis; rectal polyps Date of Surgery: 11/24/18 Discharge Date: 11/24/18 Condition: Good Forms: Discharge POC-Adult, EU Anesthesia D/C Instructions Referrals: JAUN DENNIS MD [ACTIVE STAFF] - 12/13/18 1:00 pm Discharge Activity: Activity As Tolerated, Balance Activity w/Rest, No Driving Home Care Assistance: None Needed Report the Following to Your Physician Immediately: Shortness of Breath, Nausea, Vomiting, Increase in Pain, Fever over 101 Degrees, Unusual Bleeding, IV Site Infection Signs
== END 2018-11-24 12:30 | disposition home or self-care (01) ==
LOC: END 06:44
PROVIDERS: ATTEND Surgery
DX: K57.92 Diverticulitis of intestine, part unspecified, without perforation or abscess without bleeding (principal); R10.9 Unspecified abdominal pain; Z79.899 Other long term (current) drug therapy; E07.9 Disorder of thyroid, unspecified; I10 Essential (primary) hypertension; E78.00 Pure hypercholesterolemia, unspecified; Z87.891 Personal history of nicotine dependence; Z79.01 Long term (current) use of anticoagulants; Z79.82 Long term (current) use of aspirin; K63.5 Polyp of colon; I25.10 Atherosclerotic heart disease of native coronary artery without angina pectoris
CPT/HCPCS: 45380; J2250; J3010; J2704; 811; J0171; J1200; J1610; J2310; J2405; J3490

== ENCOUNTER 2019-07-22 09:46 | Emergency (ER) | payer MEDICARE, BC ==
[2019-07-22] MEDS ORDERED: IPRATROPIUM/ALBUTEROL 0.5-2.5 MG/3 ML AMPUL NEB ONE (10:11)
--- NOTE | 2019-07-22 10:13 | ER Document Report ---
ED Medical Screen (RME) - General Chief Complaint: Cough Stated Complaint: COUGH Time Seen by Provider: 07/22/19 10:07 Primary Care Provider: JAUN DENNIS MD [Primary Care Provider] - Follow up as needed Notes: Patient is a 73-year-old female who presents to the emergency department with a chief complaint of a cough. Denies any fever. She took Levaquin from July 01 2 July 12. She was also on Mucinex and cough syrup from her primary care provider. Patient states that her symptoms are not any better. She has not been on inhalers. Exam: Slightly diminished breath sounds bilaterally. I have greeted and performed a rapid initial assessment of this patient. A comprehensive ED assessment and evaluation of the patient, analysis of test results and completion of medical decision making process will be conducted by an additional ED providers. TRAVEL OUTSIDE OF THE [place] IN LAST 30 DAYS: No - Related Data Allergies/Adverse Reactions: meloxicam Allergy (Verified 11/06/18 09:35) metaxalone Allergy (Verified 11/06/18 09:35) pregabalin [From Lyrica] Allergy (Verified 11/06/18 09:35) tramadol Allergy (Verified 07/04/17 08:08) Home Medications: mucinex Past Medical History - Social History Frequency of alcohol use: None Drug Abuse: None - Past Medical History Cardiac Medical History: Reports: Hx Coronary Artery Disease - left carotid artery sx-stent, Hx Hypercholesterolemia, Hx Hypertension Denies: Hx Heart Attack Pulmonary Medical History: Reports: Hx Pneumonia Denies: Hx Asthma, Hx Bronchitis, Hx COPD Neurological Medical History: Denies: Hx Cerebrovascular Accident, Hx Seizures Renal/ Medical History: Denies: Hx Peritoneal Dialysis GI Medical History: Reports: Hx Gastroesophageal Reflux Disease Musculoskeltal Medical History: Reports Hx Arthritis Past Surgical History: Reports: Hx Abdominal Surgery - hernia, Hx Hysterectomy, Hx Orthopedic Surgery - back, left shoulder, Other - L3-4 fusion, L4-5 fusion '17. Discectomy '15 - Immunizations Hx Diphtheria, Pertussis, Tetanus Vaccination: Yes Physical Exam - Vital signs Vitals: Temp Pulse Resp BP Pulse Ox 98.1 F 90 20 114/68 96 07/22/19 09:50 07/22/19 09:50 07/22/19 09:50 07/22/19 09:50 07/22/19 09:50 Course - Vital Signs Vital signs: Temp Pulse Resp BP Pulse Ox 98.1 F 90 20 114/68 96 07/22/19 10:07 07/22/19 10:07 07/22/19 10:07 07/22/19 10:07 07/22/19 10:07 Doctor's Discharge - Discharge Referrals: JAUN DENNIS MD [Primary Care Provider] - Follow up as needed
[2019-07-22 10:47] LABS: ABSOLUTE BASOPHILS # (AUTO) 0.1 10^3/uL (0.0-0.2); ABSOLUTE EOSINOPHILS # (AUTO) 0.1 10^3/uL (0.0-0.6); ABSOLUTE LYMPHOCYTES (AUTO) 1.4 10^3/uL (0.5-4.7); ABSOLUTE MONOCYTES (AUTO) 0.7 10^3/uL (0.1-1.4); ABSOLUTE NEUT (AUTO) 2.8 10^3/uL (1.7-8.2); BASOPHILS % (AUTO) 1.1 % (0-2); EOSINOPHILS % (AUTO) 2.7 % (0-6); HEMATOCRIT 37.1 % (36.0-47.0); HEMOGLOBIN 12.2 g/dL (12.0-15.5); LYMPHOCYTES % (AUTO) 27.1 % (13-45); MEAN CORPUSCULAR HEMOGLOBIN 30.1 pg (27.0-33.4); MEAN CORPUSCULAR HGB CONC 32.9 g/dL (32.0-36.0); MEAN CORPUSCULAR VOLUME 92 fl (80-97); MONOCYTES % (AUTO) 13.9 % (3-13); PLATELET COUNT 204 10^3/uL (150-450); RED BLOOD COUNT 4.05 10^6/uL (3.72-5.28); RED CELL DISTRIBUTION WIDTH 13.8 % (11.5-14.0); SEGMENTED NEUTROPHILS % (AUTO) 55.2 % (42-78); TOTAL CELLS COUNTED % (AUTO) 100 %
--- NOTE | 2019-07-22 10:52 | RADIOLOGY REPORT (SQ) ---
EXAM DESCRIPTION: CHEST 2 VIEWS COMPLETED DATE/TIME: 07/22/2019 10:36 am REASON FOR STUDY: cough COMPARISON: 2017 TECHNIQUE: Frontal and lateral radiographic views of the chest acquired. NUMBER OF VIEWS: Two view. LIMITATIONS: Lateral positioning is limited. Patient's arms overlie the chest. FINDINGS: LUNGS AND PLEURA: No opacities, masses or pneumothorax. No pleural effusion. MEDIASTINUM AND HILAR STRUCTURES: No masses or contour abnormalities. HEART AND VASCULAR STRUCTURES: Heart normal size. No evidence for failure. BONES: No acute findings. HARDWARE: None in the chest. OTHER: No other significant finding. IMPRESSION: NO SIGNIFICANT RADIOGRAPHIC FINDING IN THE CHEST. TECHNICAL DOCUMENTATION: JOB ID: [id number] [employer]- All Rights Reserved Reading location - IP/workstation name: [email or web address]
[2019-07-22 10:56] LABS: ALBUMIN 4.3 g/dL (3.5-5.0); ALKALINE PHOSPHATASE 57 U/L (38-126); ANION GAP 11 (5-19); ASPARTATE AMINO TRANSFERASE 27 U/L (14-36); BILIRUBIN,DIRECT 0.1 mg/dL (0.0-0.4); BILIRUBIN,TOTAL 0.4 mg/dL (0.2-1.3); BLOOD UREA NITROGEN 13 mg/dL (7-20); CALCIUM 9.4 mg/dL (8.4-10.2); CARBON DIOXIDE 28 mmol/L (22-30); CHLORIDE 101 mmol/L (98-107); GLUCOSE 174 mg/dL (75-110); POTASSIUM 3.6 mmol/L (3.6-5.0); TOTAL PROTEIN 7.1 g/dL (6.3-8.2)
[2019-07-22] MEDS ORDERED: ACETAMINOPHEN 325 MG TABLET PO ONE (12:23)
[2019-07-22] MEDS ORDERED: ACETAMINOPHEN 325 MG TABLET ONE (12:24)
[2019-07-22] MEDS ORDERED: PREDNISONE 20 MG TABLET PO ONE (14:22)
[2019-07-22] MEDS ORDERED: ALBUTEROL SULFATE 0.083% NEB 2.5 MG/3 ML AMPUL NEB ONE (14:22)
--- NOTE | 2019-07-22 14:22 | ER Document Report ---
ED Respiratory Problem - General Chief Complaint: Cough Stated Complaint: COUGH Time Seen by Provider: 07/22/19 10:07 TRAVEL OUTSIDE OF THE [place] IN LAST 30 DAYS: No - HPI Notes: 73-year-old female to the emergency department with complaints of persistent cough since July 05. She states that she saw her primary care on that date and was placed on Levaquin and cough medicine. She states that despite taking all of the Levaquin and using the cough medicine as directed she continues to cough. She states that initially the cough was productive but now it is more dry and hacking. She states that she does feel slightly short of breath and occasionally she will vomit when she has been coughing a lot. She denies any fevers or chills. She denies any marti chest pain. She does state that sometim es after she coughs several times in a row her chest is slightly sore. She denies any leg pain or leg swelling. She is not been recently traveling. She does take Plavix after she had a carotid artery stent placed. She denies any other complaints. She did receive 1 breathing treatment prior to our interview and she states that that does seem to have helped her quite a bit. - Related Data Allergies/Adverse Reactions: meloxicam Allergy (Verified 11/06/18 09:35) metaxalone Allergy (Verified 11/06/18 09:35) pregabalin [From Lyrica] Allergy (Verified 11/06/18 09:35) tramadol Allergy (Verified 07/04/17 08:08) Home Medications: mucinex Past Medical History - General Information source: Patient, Relative - Social History Smoking Status: Never Smoker Frequency of alcohol use: None Drug Abuse: None Lives with: Spouse/Significant other Family History: Reviewed & Not Pertinent Patient has suicidal ideation: No Patient has homicidal ideation: No - Past Medical History Cardiac Medical History: Reports: Hx Coronary Artery Disease - left carotid artery sx-stent, Hx Hypercholesterolemia, Hx Hypertension Denies: Hx Heart Attack Pulmonary Medical History: Reports: Hx Pneumonia Denies: Hx Asthma, Hx Bronchitis, Hx COPD Neurological Medical History: Denies: Hx Cerebrovascular Accident, Hx Seizures Renal/ Medical History: Denies: Hx Peritoneal Dialysis GI Medical History: Reports: Hx Gastroesophageal Reflux Disease Musculoskeletal Medical History: Reports Hx Arthritis Past Surgical History: Reports: Hx Abdominal Surgery - hernia, Hx Hysterectomy, Hx Orthopedic Surgery - back, left shoulder, Other - L3-4 fusion, L4-5 fusion '17. Discectomy '15 - Immunizations Hx Diphtheria, Pertussis, Tetanus Vaccination: Yes Hx Pneumococcal Vaccination: 05/09/18 Review of Systems - Review of Systems Constitutional: denies: Chills, Fever EENT: No symptoms reported Cardiovascular: denies: Chest pain, Palpitations, Heart racing, Syncope, Dizziness, Lightheaded Respiratory: See HPI, Cough. denies: Hemoptysis, Sputum Gastrointestinal: denies: Abdominal pain, Diarrhea, Nausea Genitourinary: No symptoms reported Female Genitourinary: No symptoms reported Musculoskeletal: No symptoms reported Skin: No symptoms reported Hematologic/Lymphatic: No symptoms reported Neurological/Psychological: No symptoms reported -: Yes All other systems reviewed and negative Physical Exam - Vital signs Vitals: Temp Pulse Resp BP Pulse Ox 98.1 F 90 20 114/68 96 07/22/19 09:50 07/22/19 09:50 07/22/19 09:50 07/22/19 09:50 07/22/19 09:50 Interpretation: Normal - General General appearance: Appears well, Alert In distress: None - HEENT Head: Normocephalic, Atraumatic Eyes: Normal Pupils: PERRL Ears: Normal External canal: Normal Tympanic membrane: Normal Sinus: Normal Nasal: Normal Mouth/Lips: Normal Mucous membranes: Normal Pharynx: Normal. No: Tonsillar hypertrophy, Uvular edema, Potential airway comprom. Neck: Normal, Supple. No: Lymphadenopathy, Meningismus - Respiratory Respiratory status: No respiratory distress. No: Retractions, Tachypnea, Tripod position Chest status: Nontender. No: Pain on movement, Pain with cough, Pain with deep breathing, Accessory muscle use, Prolonged expirations Breath sounds: Decreased air movement - Mildly decreased air movement throughout, Nonproductive cough. No: Rales, Rhonchi, Stridor, Wheezing Chest palpation: Normal - Cardiovascular Rhythm: Regular Heart sounds: Normal auscultation Murmur: No - Abdominal Inspection: Normal Distension: No distension Bowel sounds: Normal Tenderness: Nontender. No: Tender, McBurney's point, Sneed's sign, Guarding, Rebound Organomegaly: No organomegaly - Back Back: Normal, Nontender. No: CVA tenderness - Neurological Neuro grossly intact: Yes Cognition: Normal Orientation: AAOx4 Henrietta Coma Scale Eye Opening: Spontaneous Vasile Coma Scale Verbal: Oriented Vasile Coma Scale Motor: Obeys Commands Vasile Coma Scale Total: 15 Speech: Normal Cranial nerves: Normal Cerebellar coordination: Normal Motor strength normal: LUE, RUE, LLE, RLE Additional motor exam normals: Equal caster investment casting. No: Pronator drift Sensory: Normal - Psychological Associated symptoms: Normal affect, Normal mood - Skin Skin Temperature: Warm Skin Moisture: Dry Skin Color: Normal Course - Re-evaluation Re-evalutation: 07/22/19 Impression: Bronchitis. Noted chest x-ray with no pneumonia. Labs are re assuring. We discussed treatment plan. Do think patient would benefit from albuterol and steroids. We discussed putting her on another round of antibiotics however this is likely more viral in nature. I did offer her more antibiotics but patient has declined. We will have her follow-up with primary care physician. Patient agrees with the plan. - Vital Signs Vital signs: Temp Pulse Resp BP Pulse Ox 98.6 F 83 16 131/82 H 96 07/22/19 15:10 07/22/19 15:10 07/22/19 15:10 07/22/19 15:10 07/22/19 15:10 - Laboratory Result Diagrams: 07/22/19 10:25 07/22/19 10:25 Laboratory results interpreted by me: 07/22/19 07/22/19 10:25 10:25 Gage % (Auto) 13.9 H Glucose 174 H - Diagnostic Test Radiology reviewed: Image reviewed, Reports reviewed Discharge - Discharge Clinical Impression: Bronchitis Condition: Stable Disposition: HOME, SELF-CARE Instructions: Bronchitis ([facility]) Additional Instructions: PUSH FLUIDS. TAKE MEDICINES PRESCRIBED. COMPLETE STEROIDS. FOLLOW UP WITH PRIMARY CARE PHYSICIAN WITHOUT FAIL IN THE NEXT WEEK. RETURN IF WORSENING SYMPTOMS SUCH SHORTNESS OF BREATH, CHEST PAIN, PASSING OUT. Prescriptions: Prednisone [Deltasone 10 mg Tablet] 10 mg PO ASDIR PRN #21 tablet PRN Reason: Albuterol Sulfate [Proair HFA Inhalation Aerosol 8.5 gm MDI] 2 puff IH Q4H PRN #1 mdi PRN Reason: Inhaler, Assist Devices [Space Chamber Plus] 1 each MC DAILY #1 spacer
[2019-07-22 15:17] VITALS: BP 131/82
== END 2019-07-22 15:15 | disposition home or self-care (01) ==
LOC: ER 09:46
DX: J40 Bronchitis, not specified as acute or chronic (principal); R05 Cough; R06.02 Shortness of breath; R11.10 Vomiting, unspecified; I25.10 Atherosclerotic heart disease of native coronary artery without angina pectoris; I10 Essential (primary) hypertension; Z95.828 Presence of other vascular implants and grafts; Z79.02 Long term (current) use of antithrombotics/antiplatelets; Z79.899 Other long term (current) drug therapy; Z87.01 Personal history of pneumonia (recurrent); Z88.8 Allergy status to other drugs, medicaments and biological substances; Z88.6 Allergy status to analgesic agent
CPT/HCPCS: 94640; 99283; 36415; 85025; 80053; 71046; A9270 ×3; J7512; J7620